=== PATIENT | female | born 1940 | race Caucasian/White ===

== ENCOUNTER 2019-12-15 03:43 | Inpatient (IN) ==
[2019-12-15] MEDS ORDERED: ONDANSETRON HCL/PF 2 MG/ML VIAL ONE (03:45)
[2019-12-15] MEDS ORDERED: ONDANSETRON HCL/PF 2 MG/ML VIAL IV ONE (03:59)
--- NOTE | 2019-12-15 04:04 | ERNOTE ---
Trauma/Assault HPI - General Stated Complaint: hip/ leg pain Time Seen by Provider: 12/15/19 03:45 Source: patient, EMS, other - [facility] notes Exam Limitations: no limitations - Immun/Allergies/Home Medications Allergies/Adverse Reactions: Allergies No Known Allergies Allergy (Verified 12/15/19 03:52) Home Medications: HOME MEDICATIONS acetaminophen 500 mg tablet 500 mg PO Q6H PRN 04/29/18 [Last Taken Unknown] albuterol sulfate 90 mcg/actuation aerosol inhaler 2 inh IH Q4H PRN #8 g 03/10/19 [Last Taken Unknown] fluticasone propionate 115 mcg-salmeterol 21 mcg/actuation HFA inhaler 2 puff IH BID #8 g 07/26/19 [Last Taken Unknown] amlodipine 10 mg tablet 10 mg PO DAILY #60 tab 10/15/19 [Last Taken Unknown] hydrochlorothiazide 25 mg tablet 25 mg PO DAILY #60 tab 12/09/19 [Last Taken Unknown] Metoprolol Succinate 50 mg PO DAILY 12/15/19 [Last Taken Unknown] - History of Present Illness Narrative: Patient states she tripped over her own feet falling on her right side. She had right hip pain was unable to bear weight. She called her son who took her to [facility] ED. they diagnosed her with a greater trochanteric fracture of the right femur. Patient was accepted by Dr. Lugo in orthopedics. Patient was transferred here by [facility]. Patient received fentanyl in route by EMS and was somewhat nauseous upon arrival and given 4 mg Zofran IV. Pain Location: Reports: lower extremity Method of Injury: Reports: fall Severity: moderate Modifying Factors - (Improves): Reports: immobilization Modifying Factors - (Worsens): Reports: movement Loss of Consciousness: Reports: no loss of consciousness Associated Symptoms - Trauma: Reports: denies symptoms Review of Systems - Review of Systems Constitutional: Absent: recent illness, fever, chills EYE: Absent: vision changes ENT: Absent: nose congestion, nasal drainage Respiratory: Absent: shortness of breath, cough Cardiology: Absent: chest pain, palpitations Gastrointestinal/Abdominal: Present: See HPI, nausea. Absent: vomiting, diarrhea Genitourinary: Present: frequency - Due to diuretics. Absent: pain, dysuria Musculoskeletal: Present: See HPI, joint pain. Absent: back pain, neck pain Skin: Absent: rash, lesions Neurological: Absent: headache, dizziness/light-headedness Endocrine: Absent: excessive sweating, flushing Medical History (Last Reviewed 12/15/19 @ 04:02 by Vazquez Samano DO) IBS (irritable bowel syndrome) (Chronic) Onset Date: Unknown Osteoporosis (Chronic) Hypertension (Chronic) Hyperlipidemia (Chronic) Diverticulosis (Resolved) Onset Date: ~1979 B12 deficiency (Chronic) Asthma (Chronic) Surgical History: Surgical History (Last Reviewed 12/15/19 @ 04:02 by Vazquez Samano DO) History of cervical polypectomy Onset Date: Unknown History of cholecystectomy Onset Date: ~01/21/13 Dr. Germain History of colonoscopy Onset Date: ~12/23/06 Dr. Germain sigmoid diverticulosis History of dilatation and curettage Onset Date: ~1990 [facility] History of flexible sigmoidoscopy Onset Date: ~1989 [facility] History of laparoscopy Onset Date: ~02/14/13 Dr. Germain w/drainage of abscess and placement of drain Family History: Family History (Last Reviewed 12/15/19 @ 04:02 by Vazquez Samano DO) Sister Hypertension Father , age 71 Hypertension Depression Myocardial infarction Mother , age 71 Cancer colon ca mets to liver Social History: (Last Reviewed 12/15/19 @ 04:03 by Vazquez Samano DO) Social History: Marital status: household members: none number of children: 3 current occupational status: retired Highest education level completed: some college, no degree Service: No Tobacco: Smoking Status: Never smoker Alcohol: alcohol intake: current Substance Use: substance use type: does not use Dietary Habits: caffeine: Yes Type: coffee Physical Exam - Physical Exam General Appearance: Present: wd/wn, alert, no apparent distress Head Exam: Present: normal inspection, no evidence of injury Eye Exam: Normal inspection: bilateral Neck: Present: normal inspection, nontender, supple Respiratory: Present: no respiratory distress, normal breath sounds, chest nontender, lungs clear Cardiovascular/Chest: Present: regular rate, rhythm, no murmur Gastrointestinal/Abdominal: Present: normal bowel sounds, nontender, nondistended, soft Back Exam: Present: normal inspection Extremity Exam: Present: normal except - - Tenderness right lateral trochanter and right hip anteriorly., no edema. Absent: calf tenderness Neurological Exam: Present: alert, oriented, normal mood/affect, no motor/sensory deficits Lymphatic Exam: Present: no adenopathy Detailed Trauma Exam Best Eye Response (Bennett): (4) open spontaneously Best Verbal Response (Hilda): (5) oriented Best Motor Response (Bennett): (6) obeys commands Hilda Total: 15 - C-Spine cleared by: Neg history & exam - T, L-Spine cleared by: Neg hx and exam Progress - Results and Orders Patient's Lab Results:: I have reviewed the patient's lab results. - Vital Signs Patient's Vital Signs:: I have reviewed the patient's vital signs. Vital Signs: Vital Signs 12/15/19 03:44 Temperature 36.4 C Pulse Rate 75 Respiratory Rate 15 Blood Pressure 101/65 O2 Sat by Pulse Oximetry 99 - Progress/Reassessment Chief Complaint: Fall Progress Note-Subjective: 12/15/19 04:[address] Price he asked for the patient to be admitted to medicine and consult orthopedics he will decide whether the patient needs to go to surgery this morning. He has patient be kept n.p.o. in case she does go to surgery today. 12/15/19 04:[address] Hewitt he agrees to admit the patient and consult orthopedics. Departure Clinical Impression: Greater trochanter fracture Qualifiers: Encounter type: initial encounter Fracture type: closed Fracture alignment: nondisplaced Laterality: right Qualified Code(s): S72.114A - Nondisplaced fracture of greater trochanter of right femur, initial encounter for closed fracture - Departure Disposition: Still a patient Condition: Good Critical Care Time - Critical Care Critical Time Spent:: No
[2019-12-15 04:10] LABS: Hemoglobin 10.9 gm/dL (12.5-16.0); Mean Corpuscular Hemoglobin 29.6 pg (27-31); Mean Corpuscular Hgb Conc 34.1 g/dl (32-36); Mean Platelet Volume 7.7 fl (8-12.5); Neutrophil # 10.8 K/mm3 (1.3-6.0); Neutrophil % 87.7 % (42-75.0); Platelet Count 259 K/mm3 (150-450); Red Blood Count 3.68 M/mm3 (4.2-5.4); Red Cell Distribution Width 12.9 % (11.5-14.0); White Blood Count 12.3 K/mm3 (4.0-10.5)
[2019-12-15 04:23] LABS: Albumin * 3.7 gm/dl (3.4-5.0); Anion Gap 11.2 mmol/L (6.8-13.8); BUN/Creatinine Ratio 13.7 (9.0-21.6); Bilirubin, Total 0.4 mg/dL (0.0-1.1); Ca. Corrected For Albumin 8.9 mg/dL (8.4-10.2); Carbon Dioxide 27.5 mmol/L (24-32.6); Potassium 3.7 mmol/L (3.4-4.6); Total Protein 7.2 gm/dL (6.2-8.2)
[2019-12-15] MEDS ORDERED: NORMAL SALINE 1,000 ML IV ONE (04:25)
[2019-12-15 04:50] LABS: Urine Appearance Clear (CLEAR); Urine Bacteria TRACE; Urine Bilirubin Negative (NEGATIVE); Urine Blood Negative /ul (NEGATIVE); Urine Color Pale Yellow; Urine Ketone Negative (NEGATIVE); Urine Nitrite Negative (NEGATIVE); Urine Protein Negative (NEGATIVE); Urine RBC None Seen /hpf (0-5); Urine Urobilinogen Normal (NORMAL); Urine WBC None Seen /hpf (0-5); Urine pH 6.5 pH (5.0-7.0)
--- NOTE | 2019-12-15 07:42 | HP ---
Chief Complaint - Chief Complaint Date of Service: 12/15/19 Time of Service: 07:42 Chief Complaint: Right hip fracture History of Present Illness: Patient with past medical history of hypertension, irritable bowel syndrome, hyperlipidemia, asthma suffered a ground-level fall in her kitchen yesterday, sustaining a right trochanteric hip fracture. She is not sure why she fell, but feels like she may have tripped on her shoes. She landed on her right hip. She was brought to the [place] ER, and subsequently transferred here. Currently, she feels like she only has pain when she tries to move her right hip. Denies chest pain, shortness of breath, dysuria, skin ulcers. Medical History (Last Reviewed 12/15/19 @ 04:02 by Vazquez Samano DO) IBS (irritable bowel syndrome) (Chronic) Onset Date: Unknown Osteoporosis (Chronic) Hypertension (Chronic) Hyperlipidemia (Chronic) Diverticulosis (Resolved) Onset Date: ~1979 B12 deficiency (Chronic) Asthma (Chronic) Surgical History: Surgical History (Last Reviewed 12/15/19 @ 04:02 by Vazquez Samano DO) History of cervical polypectomy Onset Date: Unknown History of cholecystectomy Onset Date: ~01/21/13 Dr. Germain History of colonoscopy Onset Date: ~12/23/06 Dr. Germain sigmoid diverticulosis History of dilatation and curettage Onset Date: ~1990 [facility] History of flexible sigmoidoscopy Onset Date: ~1989 [facility] History of laparoscopy Onset Date: ~02/14/13 Dr. Germain w/drainage of abscess and placement of drain Family History: Family History (Last Reviewed 12/15/19 @ 04:02 by Vazquez Samano DO) Sister Hypertension Father , age 71 Hypertension Depression Myocardial infarction Mother , age 71 Cancer colon ca mets to liver Social History: (Last Reviewed 12/15/19 @ 04:03 by Vazquez Samano DO) Social History: Marital status: household members: none number of children: 3 current occupational status: retired Highest education level completed: some college, no degree Service: No Tobacco: Smoking Status: Never smoker Alcohol: alcohol intake: current Substance Use: substance use type: does not use Dietary Habits: caffeine: Yes Type: coffee Review Of Systems (GEN) - Review of Systems Generalized/Overall Review: Absent: Fever Respiratory: Absent: Cough, Shortness of Breath Cardiac: Absent: Chest Pain, Edema Abdominal: Present: Other - Has chronic intermittent diarrhea, most recently 2 days prior. Absent: Nausea, Vomiting, Constipation Genitourinary: Absent: Urgency, Dysuria Musculoskeletal: Present: Joint Pain - Right hip Neurological: Absent: Headache Skin: Absent: Lesions Allergies/Adverse Reactions: Allergies Allergy/AdvReac Type Severity Reaction Status Date / Time No Known Allergies Allergy Verified 12/15/19 03:52 Home Medications: HOME MEDICATIONS acetaminophen 500 mg tablet 500 mg PO Q6H PRN 04/29/18 [Last Taken Unknown] albuterol sulfate 90 mcg/actuation aerosol inhaler 2 inh IH Q4H PRN #8 g 03/10/19 [Last Taken Unknown] fluticasone propionate 115 mcg-salmeterol 21 mcg/actuation HFA inhaler 2 puff IH BID #8 g 07/26/19 [Last Taken Unknown] amlodipine 10 mg tablet 10 mg PO DAILY #60 tab 10/15/19 [Last Taken Unknown] hydrochlorothiazide 25 mg tablet 25 mg PO DAILY #60 tab 12/09/19 [Last Taken Unknown] Metoprolol Succinate 50 mg PO DAILY 12/15/19 [Last Taken Unknown] Exam - Exam Vital Signs: Vital Signs - Last Taken Temp 36.4 C 12/15/19 03:44 Pulse 65 12/15/19 05:00 Resp 16 12/15/19 05:00 BP 144/49 12/15/19 05:00 Pulse Ox 98 12/15/19 05:00 Constitutional: Present: Alert, Cooperative, No distress - Facial grimacing when trying to move the right hip, Elderly Respiratory: Present: normal breath sounds, no respiratory distress Cardiovascular/Chest: Present: regular rate, rhythm Abdomen: Present: Normal bowel sounds, soft, nontender Extremity: Absent: lower extremity edema Neurologic: Present: no motor/sensory deficits, normal mood/affect Eye contact: Present: cooperative, good eye contact Diagnostic Studies: Abnormal Lab Results 12/15/19 12/15/19 Range/Units 04:05 04:05 WBC 12.3 H (4.0-10.5) K/mm3 RBC 3.68 L (4.2-5.4) M/mm3 Hgb 10.9 L (12.5-16.0) gm/dL Hct 32.0 L (37.0-47.0) % MPV 7.7 L (8-12.5) fl Immature Gran % (Auto) 0.60 H (0.001-0.429) % Immature Gran # (Auto) 0.07 H (0.000-0.0310) K/mm3 Neutrophils % 87.7 H (42-75.0) % Lymphocytes % 7.2 L (20-51) % Neutrophils # 10.8 H (1.3-6.0) K/mm3 Lymphocytes # 0.88 L (1.5-3.5) k/mm3 Sodium 125 L (132-142) mmol/L Plasma Sodium 126 L (130-142) mmol/L Chloride 90 L (97-106) mmol/L Random Glucose 139 H (70-110) mg/dL Laboratory Results WBC 12.3 K/mm3 (4.0-10.5) H 12/15/19 04:05 RBC 3.68 M/mm3 (4.2-5.4) L 12/15/19 04:05 Hgb 10.9 gm/dL (12.5-16.0) L 12/15/19 04:05 Hct 32.0 % (37.0-47.0) L 12/15/19 04:05 MCV 87.0 fl (78-100) 12/15/19 04:05 MCH 29.6 pg (27-31) 12/15/19 04:05 MCHC 34.1 g/dl (32-36) 12/15/19 04:05 RDW 12.9 % (11.5-14.0) 12/15/19 04:05 Plt Count 259 K/mm3 (150-450) 12/15/19 04:05 MPV 7.7 fl (8-12.5) L 12/15/19 04:05 Immature Gran % (Auto) 0.60 % (0.001-0.429) H 12/15/19 04:05 Immature Gran # (Auto) 0.07 K/mm3 (0.000-0.0310) H 12/15/19 04:05 Neutrophils % 87.7 % (42-75.0) H 12/15/19 04:05 Lymphocytes % 7.2 % (20-51) L 12/15/19 04:05 Monocytes % 4.1 % (0.0-9) 12/15/19 04:05 Eosinophils % 0.2 % (0.0-3.0) 12/15/19 04:05 Basophils % 0.2 % (0.0-1.0) 12/15/19 04:05 Nucleated RBC % 0.0 k/mm3 (0-1) 12/15/19 04:05 Neutrophils # 10.8 K/mm3 (1.3-6.0) H 12/15/19 04:05 Lymphocytes # 0.88 k/mm3 (1.5-3.5) L 12/15/19 04:05 Monocytes # 0.5 k/mm3 (0.0-1.0) 12/15/19 04:05 Eosinophils # 0.0 k/mm3 (0.0-0.7) 12/15/19 04:05 Absolute Basophils 0.0 k/mm3 (0.0-0.1) 12/15/19 04:05 Sodium 125 mmol/L (132-142) L 12/15/19 04:05 Plasma Sodium 126 mmol/L (130-142) L 12/15/19 04:05 Potassium 3.7 mmol/L (3.4-4.6) D 12/15/19 04:05 Chloride 90 mmol/L (97-106) L 12/15/19 04:05 Carbon Dioxide 27.5 mmol/L (24-32.6) 12/15/19 04:05 Anion Gap 11.2 mmol/L (6.8-13.8) 12/15/19 04:05 BUN 13 mg/dL (3-23) 12/15/19 04:05 Creatinine 0.95 mg/dL (0.4-1.4) 12/15/19 04:05 Est GFR (Non-Af Amer) 60 mL/min (60-130) 12/15/19 04:05 BUN/Creatinine Ratio 13.7 (9.0-21.6) 12/15/19 04:05 Random Glucose 139 mg/dL (70-110) H 12/15/19 04:05 Calcium 9.0 mg/dL (7.9-10.9) 12/15/19 04:05 Calcium Adj for Albumin 8.9 mg/dL (8.4-10.2) 12/15/19 04:05 Total Bilirubin 0.4 mg/dL (0.0-1.1) 12/15/19 04:05 AST 21 U/L (0-48) 12/15/19 04:05 ALT 20 U/L (19-67) 12/15/19 04:05 Alkaline Phosphatase 71 U/L (50-170) 12/15/19 04:05 Total Protein 7.2 gm/dL (6.2-8.2) 12/15/19 04:05 Albumin 3.7 gm/dl (3.4-5.0) 12/15/19 04:05 Urine Color Pale yellow 12/15/19 04:41 Urine Appearance Clear (CLEAR) 12/15/19 04:41 Urine pH 6.5 pH (5.0-7.0) 12/15/19 04:41 Ur Specific [place] 1.010 SP.GR. (1.005-1.010) 12/15/19 04:41 Urine Protein Negative mg/dL (NEGATIVE) 12/15/19 04:41 Urine Glucose (UA) Negative mg/dL (NEGATIVE) 12/15/19 04:41 Urine Ketones Negative mg/dL (NEGATIVE) 12/15/19 04:41 Urine Blood Negative /ul (NEGATIVE) 12/15/19 04:41 Urine Nitrate Negative (NEGATIVE) 12/15/19 04:41 Urine Bilirubin Negative mg/dl (NEGATIVE) 12/15/19 04:41 Urine Urobilinogen Normal EU/dl (NORMAL) 12/15/19 04:41 Ur Leukocyte Esterase Negative /ul (NEGATIVE) 12/15/19 04:41 Urine RBC None seen /hpf (0-5) 12/15/19 04:41 Urine WBC None seen /hpf (0-5) 12/15/19 04:41 Ur Epithelial Cells None seen /hpf (0-5) 12/15/19 04:41 Urine Bacteria Trace (NONE) 12/15/19 04:41 Urine Culture Comments No culture indicated 12/15/19 04:41 Assessment/Plan - Assessment/Plan (1) Greater trochanter fracture Assessment: She was evaluated by Ortho, and no surgery needed. Will order PT and OT, and pain control with IV morphine, Allen, Tylenol as needed. Her PT evaluation will help determine the duration of her hospital stay. With her hyponatremia, anticipate at least 2 midnight stay. She lives alone. If she is unable to maneuver following physical therapy guidance, may need a stay in a rehab facility prior to returning home. Problem: Acute Qualifiers: Encounter type: initial encounter Fracture type: closed Fracture alignment: nondisplaced Laterality: right Qualified Code(s): S72.114A - Nondisplaced fracture of greater trochanter of right femur, initial encounter for closed fracture (2) Hyponatremia Assessment: Sodium was 125 this morning. Glucose not elevated. Likely secondary to her hydrochlorothiazide, but this has not been present in the past. She is given 1 L of fluid here in the ED. Will recheck CMP in the morning. Problem: Acute (3) Hypertension Assessment: She has not yet taken her blood pressure medications this morning. She did receive some fentanyl in the ambulance. Her blood pressure was actually a bit low on admission here, and is gradually increasing. We will continue home amlodipine, metoprolol. Will hold her HCTZ due to her hyponatremia, and add additional agent if needed, likely an CHAKA/ARB. Problem: Chronic (4) Hyperlipidemia Problem: Chronic (5) Asthma Assessment: Continue home Advair and as needed albuterol inhaler. She reports no difficulty breathing currently. Is oxygenating on room air. Problem: Chronic (6) IBS (irritable bowel syndrome) Assessment: Not currently having a flare. Problem: Chronic
[2019-12-15] MEDS ORDERED: MORPHINE SULFATE 2 MG/ML DISP.SYRIN IV PRN (07:56)
[2019-12-15] MEDS ORDERED: ACETAMINOPHEN 500 MG TABLET PO PRN (09:10)
[2019-12-15] MEDS ORDERED: ALBUTEROL SULFATE 2.5 MG/0.5 ML VIAL.NEB IH PRN (09:10)
[2019-12-15] MEDS: ALBUTEROL SULFATE 2.5 MG/0.5 ML VIAL.NEB IH SCH ×2 (10:38→18:10)
[2019-12-15] MEDS: BUDESONIDE 0.25 MG/2 ML VIAL.NEB IH SCH ×2 (10:39→18:11)
[2019-12-15] MEDS: ENOXAPARIN SODIUM 40 MG/0.4 ML SYRG SC SCH (12:35)
[2019-12-15] MEDS: ACETAMINOPHEN 500 MG TABLET PO PRN (15:04)
--- NOTE | 2019-12-15 15:55 | CONS ---
[facility] - General Date of Service: 12/15/19 Narrative: 79-year-old female was brought to our ER from [facility]. Patient notes she fell in her kitchen earlier this morning had significant right hip pain. Patient notes her pain is worse movement better with rest. She notes that she significant impairment in her ability to ambulate status post fall. She notes her pain is mostly located in her right hip without significant radiating symptoms. She notes she has not taken any other medications to alleviate and improve her symptoms. Denies any other acute trauma, head injury, significant acute symptoms diffusely. Source: patient - History of Present Illness Allergies/Adverse Reactions: Allergies No Known Allergies Allergy (Verified 12/15/19 14:49) Home Medications: Home Medications Medication Instructions Recorded Last Taken acetaminophen 500 mg tablet 1,000 mg PO Q8H PRN 04/29/18 Unknown albuterol sulfate 90 mcg/actuation 2 inh IH Q4H PRN #8 g 03/10/19 Unknown aerosol inhaler fluticasone propionate 115 2 puff IH BID #8 g 07/26/19 Unknown mcg-salmeterol 21 mcg/actuation HFA inhaler amlodipine 10 mg tablet 10 mg PO DAILY #60 tab 10/15/19 Unknown hydrochlorothiazide 25 mg tablet 25 mg PO DAILY #60 tab 12/09/19 Unknown Metoprolol Succinate 50 mg PO DAILY 12/15/19 Unknown Procedures Colonoscopy (12/23/06) Laparoscopic cholecystectomy (01/31/13) Percutaneous abdominal drainage (02/12/13) Venous catheterization, not elsewhere classified (02/12/13) Medications - Medications Current Medications: Current Medications Acetaminophen (Tylenol) 1,000 mg PO Q8H PRN PRN Reason: Pain Stop: 01/14/20 09:11 Last Admin: 12/15/19 15:04 Dose: 1,000 mg Documented by: Albuterol Sulfate (Albuterol Sulfate 2.5 Mg/0.5ml) 2.5 mg IH BIDRT [facility] Stop: 01/14/20 09:31 Last Admin: 12/15/19 10:38 Dose: 2.5 mg Documented by: Budesonide (Pulmicort Respules) 0.25 mg IH BIDRT [facility] Stop: 01/14/20 09:31 Last Admin: 12/15/19 10:39 Dose: 0.25 mg Documented by: Enoxaparin Sodium (Lovenox) 40 mg SC Q24H JUANITO Stop: 01/14/20 08:31 Last Admin: 12/15/19 12:35 Dose: 40 mg Documented by: Physical Examination - Exam Vital Signs: Vital Signs - Last Taken Temp 36.5 C 12/15/19 15:22 Pulse 95 12/15/19 15:22 Resp 20 12/15/19 15:22 BP 141/47 12/15/19 15:22 Pulse Ox 97 12/15/19 15:22 O2 Oxygen Delivery Method Room Air Constitutional: Present: Alert, Cooperative, No distress Respiratory: Present: no respiratory distress Extremity: Present: other - RLE--> sensation intact light touch, distal capillary refill brisk, diffuse tenderness about right hip, no obvious wounds or deformity, no significant pain about the knee, 0 to 60 degrees forward flexion actively Skin Exam: Present: normal color, warm/dry Appearance: Present: appropriate appearance Eye contact: Present: cooperative, good eye contact Thoughts: Present: normal thought pattern - Results and Findings: Lab/Microbiology results last 24 hrs: Abnormal/Pending Laboratory Last 24 HRS 12/15/19 12/15/19 04:05 04:05 WBC 12.3 H RBC 3.68 L Hgb 10.9 L Hct 32.0 L MPV 7.7 L Immature Gran % (Auto) 0.60 H Immature Gran # (Auto) 0.07 H Neutrophils % 87.7 H Lymphocytes % 7.2 L Neutrophils # 10.8 H Lymphocytes # 0.88 L Sodium 125 L Plasma Sodium 126 L Chloride 90 L Random Glucose 139 H - Assessments/Findings (1) Greater trochanter fracture Problem: Acute Qualifiers: Encounter type: initial encounter Fracture type: closed Fracture alignment: nondisplaced Laterality: right Qualified Code(s): S72.114A - Nondisplaced fracture of greater trochanter of right femur, initial encounter for closed fracture Plan - Plan Plan: -79-year-old female admitted with a right greater trochanteric fracture. Orthopedics was consulted after patient was brought to ER with a hip fracture. Dr. Price ordered a CT to better evaluate the femoral neck for possible fracture or underlying pathology. CT revealed a nondisplaced greater trochanter fracture. On the CT results would recommend nonoperative treatment. Patient can be 0 to 25% toe-touch weightbearing with an assistive device like a walker. Would recommend due to patient's social situation transfer to a senior care facility for PT/OT. Patient is at a significantly increased risk of falling due to this fracture. Recommend pain control with p.o. pain medication. Patient can follow-up with orthopedic outpatient clinic at 2 post fall. Can call orthopedic outpatient clinic with any acute questions or concerns. Would recommend continued work with ambulation with PT/OT.
[2019-12-15] MEDS: FLUTICASONE PROPION/SALMETEROL 14 PUFF DISK.W.DEV IH SCH (20:46)
[2019-12-16] MEDS: ALBUTEROL SULFATE 2.5 MG/0.5 ML VIAL.NEB IH SCH ×2 (06:04→18:11)
[2019-12-16] MEDS: BUDESONIDE 0.25 MG/2 ML VIAL.NEB IH SCH ×2 (06:05→18:11)
[2019-12-16 07:28] LABS: Anion Gap 9.1 mmol/L (6.8-13.8); BUN/Creatinine Ratio 20.2 (9.0-21.6); Bilirubin, Total 0.5 mg/dL (0.0-1.1); Ca. Corrected For Albumin 9.2 mg/dL (8.4-10.2); Calcium * 8.7 mg/dL (7.9-10.9); Carbon Dioxide 27.8 mmol/L (24-32.6); Potassium 3.9 mmol/L (3.4-4.6); Total Protein 6.3 gm/dL (6.2-8.2)
[2019-12-16] MEDS: HYDROcodone/ACETAMINOPHEN 1 EACH TABLET PO PRN ×2 (08:13→14:28)
[2019-12-16] MEDS: ENOXAPARIN SODIUM 40 MG/0.4 ML SYRG SC SCH (08:17)
[2019-12-16] MEDS ORDERED: METOPROLOL SUCCINATE 50 MG TABLET.SA PO SCH (09:00)
[2019-12-16] MEDS ORDERED: HYDROCHLOROTHIAZIDE 25 MG TABLET PO SCH (09:00)
--- NOTE | 2019-12-16 09:09 | PN ---
Subjective - Date and Time Seen Date: 12/16/19 Time: 09:09 Subjective Narrative: Patient has been trying to use her walker with ambulation. She started using the [facility] this morning and attempt to get some better pain control. No new concerns. Objective - Review of Systems Generalized/Overall Review: Denies: Fever Respiratory: Denies: Shortness of Breath Cardiac: Denies: Chest Pain Abdominal: Denies: Vomiting Genitourinary Symptoms: Reports: No Symptoms Reported Musculoskeletal Complaints: Reports: Joint Pain - right hip - Vitals Vitals: Last Vital Signs Temp 37.4 C 12/16/19 06:44 Pulse 88 12/16/19 06:44 Resp 12 12/16/19 06:44 BP 107/60 12/16/19 06:44 Pulse Ox 97 12/16/19 06:44 - Abnormal Lab Findings Abnormal Lab Findings: Abnormal Lab Results 12/16/19 Range/Units 06:50 Sodium 129 L (132-142) mmol/L Plasma Sodium 129 L (130-142) mmol/L Chloride 96 L (97-106) mmol/L Est GFR (Non-Af Amer) 54 L (60-130) mL/min ALT 16 L (19-67) U/L Albumin 3.0 L (3.4-5.0) gm/dl - Exam Constitutional: Present: Alert, Cooperative, No distress, Elderly Respiratory: Present: normal breath sounds, no respiratory distress Cardiovascular/Chest: Present: regular rate, rhythm Abdomen: Present: soft Extremity: Absent: lower extremity edema Eye contact: Present: cooperative, good eye contact Assessment/Plan - Problems/Diagnosis (1) Greater trochanter fracture Problem: Acute Qualifiers: Encounter type: initial encounter Fracture type: closed Fracture alignment: nondisplaced Laterality: right Qualified Code(s): S72.114A - Nondisplaced fracture of greater trochanter of right femur, initial encounter for closed fracture Narrative: She sustained a right greater trochanter fracture after a ground-level fall at home. She is working with PT. She prefer not to have to go to a halfway before going home. Continue pain control with [facility] [place]. If she is able to ambulate sufficiently with a walker to the bathroom, she can DC home. Anticipate discharge in 24 to 48 hours. If she does require halfway placement on discharge, will need to be here through [facility], as it is a holiday weekend. Will order home health on discharge. (2) Hypertension Problem: Chronic Narrative: Her blood pressure medicine has been held and her blood pressure is actually been a bit low. Will not continue hydrochlorothiazide as it may be contributing to her hyponatremia. Can add back antihypertensives as needed, for sustained blood pressure greater than 140/90. (3) Hyponatremia Problem: Acute Narrative: She has been getting fluids, and will recheck CMP in the morning. Sodium has improved from 125 to 129. HCTZ is possible source, and has been held. (4) Hyperlipidemia Problem: Chronic (5) Asthma Problem: Chronic Narrative: No current respiratory complaints and she is oxygenating well on room air. (6) IBS (irritable bowel syndrome) Problem: Chronic
[2019-12-16] MEDS: FLUTICASONE PROPION/SALMETEROL 14 PUFF DISK.W.DEV IH SCH ×2 (10:14→20:39)
[2019-12-17] MEDS: ALBUTEROL SULFATE 2.5 MG/0.5 ML VIAL.NEB IH SCH (06:14)
[2019-12-17] MEDS: BUDESONIDE 0.25 MG/2 ML VIAL.NEB IH SCH ×2 (06:14→07:15)
[2019-12-17 06:51] LABS: Anion Gap 9.1 mmol/L (6.8-13.8); BUN/Creatinine Ratio 19.8 (9.0-21.6); Bilirubin, Total 0.5 mg/dL (0.0-1.1); Ca. Corrected For Albumin 9.3 mg/dL (8.4-10.2); Calcium * 8.8 mg/dL (7.9-10.9); Carbon Dioxide 28.7 mmol/L (24-32.6); Potassium 3.8 mmol/L (3.4-4.6); Total Protein 6.4 gm/dL (6.2-8.2)
[2019-12-17] MEDS: ACETAMINOPHEN 500 MG TABLET PO PRN ×2 (07:35→13:23)
[2019-12-17] MEDS ORDERED: POLYVINYL ALCOHOL 150 DROP BTL EACHEYE PRN (08:32)
[2019-12-17] MEDS: ENOXAPARIN SODIUM 40 MG/0.4 ML SYRG SC SCH (09:38)
[2019-12-17] MEDS: FLUTICASONE PROPION/SALMETEROL 14 PUFF DISK.W.DEV IH SCH ×2 (09:38→20:17)
[2019-12-17] MEDS: SODIUM CHLORIDE 1 GM TABLET PO SCH (09:38)
--- NOTE | 2019-12-17 12:04 | PN ---
Subjective - Date and Time Seen Date: 12/17/19 Time: 11:59 Subjective Narrative: She still has significant pain with transfer, particularly in the morning. She feels like the norco gives her some nausea, so she's planning on trying just tylenol for pain today. She has some increased gas, and hasn't had a BM in 3 days, and would like to try some miralax. Objective - Review of Systems Generalized/Overall Review: Denies: Fever Respiratory: Denies: Shortness of Breath, Wheezing Cardiac: Denies: Chest Pain, Edema Abdominal: Reports: Constipation, Other - gas. Denies: Abdominal Pain Genitourinary Symptoms: Reports: No Symptoms Reported Musculoskeletal Complaints: Reports: Joint Pain - lateral right hip Neurological: Reports: No Symptoms Reported - Vitals Vitals: Last Vital Signs Temp 36.9 C 12/17/19 10:45 Pulse 77 12/17/19 11:37 Resp 16 12/17/19 10:45 BP 90/44 12/17/19 11:37 Pulse Ox 99 12/17/19 11:37 - Abnormal Lab Findings Abnormal Lab Findings: Abnormal Lab Results 12/17/19 Range/Units 06:35 Sodium 128 L (132-142) mmol/L Plasma Sodium 128 L (130-142) mmol/L Chloride 94 L (97-106) mmol/L Est GFR (Non-Af Amer) 56 L (60-130) mL/min Random Glucose 116 H (70-110) mg/dL ALT 15 L (19-67) U/L Alkaline Phosphatase 49 L (50-170) U/L Albumin 3.0 L (3.4-5.0) gm/dl - Exam Constitutional: Present: Alert, Oriented x3, Cooperative, No distress, Elderly Respiratory: Present: lungs clear, normal breath sounds Cardiovascular/Chest: Present: regular rate, rhythm Abdomen: Present: soft, nontender Extremity: Absent: lower extremity edema Appearance: Present: appropriate insight Eye contact: Present: cooperative, good eye contact Assessment/Plan - Problems/Diagnosis (1) Greater trochanter fracture Problem: Acute Qualifiers: Encounter type: initial encounter Fracture type: closed Fracture alignment: nondisplaced Laterality: right Qualified Code(s): S72.114A - Nondisplaced fracture of greater trochanter of right femur, initial encounter for closed fracture Narrative: Ortho was consulted, and her fracture can be managed medically, and does not require surgical intervention. She has been working with physical therapy, and is able to transfer with assistance, but has significant pain, particularly in the morning. She is using norco for pain control currently, but doesn't like how it makes her feel, and doesn't feel like it's very helpful. She'd like to try tylenol for pain control today. She declines rehab placement after DC. A son is able to stay with her for 2 weeks, as long as she has home health. This was discussed with case t, and her son is unable to be here to stay with her until Friday, 3 days from now. She is unable to DC before then, as she is a significant fall risk with her trochanter hip fracture. (2) Hypertension Problem: Chronic Narrative: She's had several low BP readings since she's been here, so her home antihypertensives have been held. Can restart for sustained BP greater than 140/90. Will stop the HCTZ, as she is hyponatremic. (3) Hyponatremia Problem: Acute Narrative: Sodium is 128 today, and was 129 yesterday. Likely due to home HCTZ, which has been held. Will add NaCl while she is here, and recheck in am. (4) Hyperlipidemia Problem: Chronic (5) Asthma Problem: Chronic Narrative: She is oxygenating well on room air. (6) IBS (irritable bowel syndrome) Problem: Chronic
[2019-12-17] MEDS: POLYETHYLENE GLYCOL 3350 17 GM PACKET PO PRN (20:17)
[2019-12-17] MEDS: HYDROcodone/ACETAMINOPHEN 1 EACH TABLET PO PRN (20:18)
[2019-12-18] MEDS: ACETAMINOPHEN 500 MG TABLET PO PRN ×3 (06:49→21:36)
[2019-12-18 07:08] LABS: Albumin * 3.5 gm/dl (3.4-5.0); Anion Gap 9.7 mmol/L (6.8-13.8); BUN/Creatinine Ratio 16.5 (9.0-21.6); Bilirubin, Total 0.4 mg/dL (0.0-1.1); Ca. Corrected For Albumin 9.4 mg/dL (8.4-10.2); Calcium * 9.3 mg/dL (7.9-10.9); Carbon Dioxide 29.4 mmol/L (24-32.6); Potassium 4.1 mmol/L (3.4-4.6); Total Protein 7.4 gm/dL (6.2-8.2)
[2019-12-18] MEDS: ENOXAPARIN SODIUM 40 MG/0.4 ML SYRG SC SCH (08:42)
[2019-12-18] MEDS: FLUTICASONE PROPION/SALMETEROL 14 PUFF DISK.W.DEV IH SCH ×2 (08:43→21:35)
[2019-12-18] MEDS: SODIUM CHLORIDE 1 GM TABLET PO SCH (08:44)
[2019-12-18] MEDS: amLODIPine BESYLATE 10 MG TABLET PO SCH (08:46)
[2019-12-18] MEDS: POLYETHYLENE GLYCOL 3350 17 GM PACKET PO PRN (08:47)
--- NOTE | 2019-12-18 09:36 | PN ---
Subjective - Date and Time Seen Date: 12/18/19 Time: 09:10 Subjective Narrative: She and her nurse feel like she's doing well. Is able to transfer using the walker, but is still very apprehensive about falling. Her BP has been increasing. Has not yet had a BM. Objective - Review of Systems Generalized/Overall Review: Denies: Fever Respiratory: Reports: Cough - this morning. Denies: Shortness of Breath Cardiac: Denies: Chest Pain Abdominal: Reports: Constipation. Denies: Nausea, Abdominal Pain Genitourinary Symptoms: Reports: No Symptoms Reported Musculoskeletal Complaints: Reports: Joint Pain - lateral right hip Neurological: Reports: No Symptoms Reported - Vitals Vitals: Last Vital Signs Temp 37.3 C 12/18/19 06:21 Pulse 76 12/18/19 08:46 Resp 16 12/18/19 06:21 BP 161/54 H 12/18/19 08:46 Pulse Ox 99 12/18/19 06:21 - Abnormal Lab Findings Abnormal Lab Findings: Abnormal Lab Results 12/18/19 Range/Units 06:37 Sodium 131 L (132-142) mmol/L Chloride 96 L (97-106) mmol/L Est GFR (Non-Af Amer) 59 L (60-130) mL/min ALT 17 L (19-67) U/L - Exam Constitutional: Present: Alert, Cooperative, Well developed, Well nourished, Elderly Respiratory: Present: normal breath sounds Cardiovascular/Chest: Present: regular rate, rhythm Abdomen: Present: soft. Absent: tender Extremity: Absent: lower extremity edema Neurologic: Present: normal mood/affect Assessment/Plan - Problems/Diagnosis (1) Greater trochanter fracture Problem: Acute Qualifiers: Encounter type: initial encounter Fracture type: closed Fracture alignment: nondisplaced Laterality: right Qualified Code(s): S72.114A - Nondisplaced fracture of greater trochanter of right femur, initial encounter for closed fracture Narrative: Ortho was consulted, and her fracture can be managed medically, and does not require surgical intervention. She has been working with physical therapy, and is able to transfer with assistance, but has significant pain, particularly in the morning. She tried using just tylenol for pain yesterday, because she didn't like how the norco made her feel. She doesn't feel like it was particularly helpful, but wants to keep trying it. She declines rehab placement after DC. A son is able to stay with her for 2 weeks, as long as she has home health. This was discussed with case mgt, and her son is unable to be here to stay with her until Friday, 2 days from now. She is unable to DC before then, as she is a significant fall risk with her trochanter hip fracture. Continue PT while admitted. (2) Hypertension Problem: Chronic Narrative: She had several low BP readings since admission, so her home antihypertensives were been held. This morning's BPs are 161/44, so will restart home amlodipine. Will stop the HCTZ, as she is hyponatremic. Will also restart metoprolol for sustained BP greater than 140/90. (3) Hyponatremia Problem: Acute Narrative: Improving. Suspect the source is her HCTZ, which has been DC'd. NaCl added yesterday, and sodium level was 131 this morning. (4) Hyperlipidemia Problem: Chronic (5) Asthma Problem: Chronic Narrative: She is oxygenating well on room air. Continue home meds with formulary substitutions. (6) IBS (irritable bowel syndrome) Problem: Chronic
[2019-12-19] MEDS: POLYETHYLENE GLYCOL 3350 17 GM PACKET PO PRN (09:10)
[2019-12-19] MEDS: amLODIPine BESYLATE 10 MG TABLET PO SCH (09:10)
[2019-12-19] MEDS: SODIUM CHLORIDE 1 GM TABLET PO SCH (09:10)
[2019-12-19] MEDS: ENOXAPARIN SODIUM 40 MG/0.4 ML SYRG SC SCH (09:10)
[2019-12-19] MEDS: FLUTICASONE PROPION/SALMETEROL 14 PUFF DISK.W.DEV IH SCH ×2 (09:10→21:18)
[2019-12-19] MEDS ORDERED: SENNOSIDES 8.6 MG TABLET PO PRN (09:31)
--- NOTE | 2019-12-19 09:34 | PN ---
Subjective - Date and Time Seen Date: 12/19/19 Time: 09:16 Subjective Narrative: Henrietta has no new concerns. Still has not had a bowel movement, but doesn't have abdominal discomfort. Objective - Review of Systems Generalized/Overall Review: Denies: Fever Respiratory: Reports: Cough - coughing spell overnight. Denies: Shortness of Breath Cardiac: Denies: Chest Pain, Edema Abdominal: Reports: Constipation. Denies: Nausea, Vomiting, Abdominal Pain Genitourinary Symptoms: Reports: No Symptoms Reported Musculoskeletal Complaints: Reports: Joint Pain - right hip - Vitals Vitals: Last Vital Signs Temp 37.2 C 12/19/19 06:13 Pulse 72 12/19/19 09:10 Resp 16 12/19/19 06:13 BP 141/61 12/19/19 09:10 Pulse Ox 97 12/19/19 06:13 - Exam Constitutional: Present: Alert, Cooperative, No distress, Elderly Respiratory: Present: lungs clear, normal breath sounds Cardiovascular/Chest: Present: regular rate, rhythm Abdomen: Present: Normal bowel sounds, soft, nontender Extremity: Present: other - minimal bruising of right lateral hip. Absent: lower extremity edema Appearance: Present: appropriate appearance Eye contact: Present: cooperative, good eye contact Assessment/Plan - Problems/Diagnosis (1) Greater trochanter fracture Problem: Acute Qualifiers: Encounter type: initial encounter Fracture type: closed Fracture alignment: nondisplaced Laterality: right Qualified Code(s): S72.114A - Nondisplaced fracture of greater trochanter of right femur, initial encounter for closed fracture Narrative: Ortho was consulted, and her fracture can be managed medically, and does not require surgical intervention. She has been working with physical therapy, and is able to transfer with assistance. She reports significant pain, but has not used norco in two days. Pain control with tylenol currently. She declines rehab placement after DC. A son is able to stay with her for 2 weeks, as long as she has home health. This was discussed with case rai, and her son is unable to be here to stay with her until tomorrow. She is unable to DC before then, as she is a significant fall risk with her trochanter hip fracture. Likely DC tomorrow with home health and a walker. (2) Hypertension Problem: Chronic Narrative: BP has been 130's-140's/60's with amlodipine, and will continue this. Stop HCTZ for hyponatremia. Will add back her metoprolol for sustained BP greater than 140/80. (3) Hyponatremia Problem: Acute Narrative: Na+ of 125 on admission, and improved to 131 yesterday after stopping HCTZ and adding NaCl tablets. Recheck in am. (4) Hyperlipidemia Problem: Chronic (5) Asthma Problem: Chronic (6) IBS (irritable bowel syndrome) Problem: Chronic Qualifiers: Irritable bowel syndrome type: with constipation Qualified Code(s): K58.1 - Irritable bowel syndrome with constipation Narrative: She doesn't think she's had a BM in about 5 days. Normally, she goes 4 days between bowel movements. Miralax was added yesterday, and will add senna today.
[2019-12-19] MEDS: ACETAMINOPHEN 500 MG TABLET PO PRN ×2 (14:06→21:20)
[2019-12-20] MEDS: ACETAMINOPHEN 500 MG TABLET PO PRN (06:28)
[2019-12-20 06:50] LABS: Albumin * 3.1 gm/dl (3.4-5.0); Anion Gap 8.8 mmol/L (6.8-13.8); BUN/Creatinine Ratio 16.5 (9.0-21.6); Bilirubin, Total 0.4 mg/dL (0.0-1.1); Ca. Corrected For Albumin 9.3 mg/dL (8.4-10.2); Calcium * 8.9 mg/dL (7.9-10.9); Carbon Dioxide 29.5 mmol/L (24-32.6); Potassium 5.3 mmol/L (3.4-4.6); Total Protein 6.6 gm/dL (6.2-8.2)
[2019-12-20] MEDS: amLODIPine BESYLATE 10 MG TABLET PO SCH (08:08)
[2019-12-20] MEDS: SODIUM CHLORIDE 1 GM TABLET PO SCH (08:09)
[2019-12-20] MEDS: FLUTICASONE PROPION/SALMETEROL 14 PUFF DISK.W.DEV IH SCH (08:09)
[2019-12-20] MEDS: ENOXAPARIN SODIUM 40 MG/0.4 ML SYRG SC SCH (08:10)
--- NOTE | 2019-12-20 12:18 | DS ---
(1) Greater trochanter fracture Problem: Acute Qualifiers: Encounter type: initial encounter Fracture type: closed Fracture alignment: nondisplaced Laterality: right Qualified Code(s): S72.114A - Nondisplaced fracture of greater trochanter of right femur, initial encounter for closed fracture (2) Hypertension Problem: Chronic (3) Hyponatremia Problem: Resolved (4) Hyperlipidemia Problem: Chronic (5) Asthma Problem: Chronic (6) IBS (irritable bowel syndrome) Problem: Chronic Qualifiers: Irritable bowel syndrome type: with constipation Qualified Code(s): K58.1 - Irritable bowel syndrome with constipation Date of Discharge:: 12/20/19 Hospital Course: Patient admitted after ground level fall at home. ED workup showed a fracture of her right greater trochanter. Ortho was consulted, and medical management was recommend. She was able to work with physical therapy, and could transfer with a walker. She did not like how the Ethel made her feel, and pain was managed with Tylenol. She lives alone, and did not have support at home. She remained hospitalized for a few extra days over a holiday weekend, until a son could be with her. She declined rehab placement. She has opted for [facility] home health after discharge. She was hyponatremic on admission, with a sodium level of 125. This was felt to be secondary to hydrochlorothiazide, which was held. Her blood pressure is actually low for the first couple of days of admission. As her blood pressure increased, home amlodipine and eventually metoprolol restarted. Sodium was 131 on the day of discharge. Labs done on the day of discharge showed potassium level of 5.3. She was not hyperkalemic throughout the rest of her stay. Recommend repeating on hospital follow-up outpatient visit. Procedures Performed: none Results and Findings: Lab Pending Results 12/15/19 04:05: WBC 12.3 H, RBC 3.68 L, Hgb 10.9 L, Hct 32.0 L, MCV 87.0, MCH 29.6, MCHC 34.1, RDW 12.9, Plt Count 259, MPV 7.7 L, Immature Gran % (Auto) 0.60 H, Immature Gran # (Auto) 0.07 H, Neutrophils % 87.7 H, Lymphocytes % 7.2 L, Monocytes % 4.1, Eosinophils % 0.2, Basophils % 0.2, Nucleated RBC % 0.0, Neutrophils # 10.8 H, Lymphocytes # 0.88 L, Monocytes # 0.5, Eosinophils # 0.0, Absolute Basophils 0.0 12/15/19 04:05: Sodium 125 L, Plasma Sodium 126 L, Potassium 3.7 D, Chloride 90 L, Carbon Dioxide 27.5, Anion Gap 11.2, BUN 13, Creatinine 0.95, Est GFR (Non-Af Amer) 60, BUN/Creatinine Ratio 13.7, Random Glucose 139 H, Calcium 9.0, Calcium Adj for Albumin 8.9, Total Bilirubin 0.4, AST 21, ALT 20, Alkaline Phosphatase 71, Total Protein 7.2, Albumin 3.7 12/15/19 04:41: Urine Color Pale yellow, Urine Appearance Clear, Urine pH 6.5, Ur Specific [employer] 1.010, Urine Protein Negative, Urine Glucose (UA) Negative, Urine Ketones Negative, Urine Blood Negative, Urine Nitrate Negative, Urine Bilirubin Negative, Urine Urobilinogen Normal, Ur Leukocyte Esterase Negative, Urine RBC None seen, Urine WBC None seen, Ur Epithelial Cells None seen, Urine Bacteria Trace, Urine Culture Comments No culture indicated 12/16/19 06:50: Sodium 129 L, Plasma Sodium 129 L, Potassium 3.9, Chloride 96 L, Carbon Dioxide 27.8, Anion Gap 9.1, BUN 21 D, Creatinine 1.04, Est GFR (Non-Af Amer) 54 L, BUN/Creatinine Ratio 20.2, Random Glucose 92 D, Calcium 8.7, Calcium Adj for Albumin 9.2, Total Bilirubin 0.5, AST 16, ALT 16 L, Alkaline Phosphatase 52, Total Protein 6.3, Albumin 3.0 L 12/17/19 06:35: Sodium 128 L, Plasma Sodium 128 L, Potassium 3.8, Chloride 94 L, Carbon Dioxide 28.7, Anion Gap 9.1, BUN 20, Creatinine 1.01, Est GFR (Non-Af Amer) 56 L, BUN/Creatinine Ratio 19.8, Random Glucose 116 H, Calcium 8.8, Calcium Adj for Albumin 9.3, Total Bilirubin 0.5, AST 14, ALT 15 L, Alkaline Phosphatase 49 L, Total Protein 6.4, Albumin 3.0 L 12/18/19 06:37: Sodium 131 L, Plasma Sodium 131, Potassium 4.1, Chloride 96 L, Carbon Dioxide 29.4, Anion Gap 9.7, BUN 16, Creatinine 0.97, Est GFR (Non-Af Amer) 59 L, BUN/Creatinine Ratio 16.5, Random Glucose 93, Calcium 9.3, Calcium Adj for Albumin 9.4, Total Bilirubin 0.4, AST 16, ALT 17 L, Alkaline Phosphatase 58, Total Protein 7.4, Albumin 3.5 12/20/19 06:10: Sodium 132, Plasma Sodium 132, Potassium 5.3 H D, Chloride 99, Carbon Dioxide 29.5, Anion Gap 8.8, BUN 14, Creatinine 0.85, Est GFR (Non-Af Amer) 68, BUN/Creatinine Ratio 16.5, Random Glucose 93, Calcium 8.9, Calcium Adj for Albumin 9.3, Total Bilirubin 0.4, AST 23, ALT 26, Alkaline Phosphatase 60, Total Protein 6.6, Albumin 3.1 L Discharge Location: Home Disposition: Home Health Service Home Health Agency: [facility] Condition: Good Discharge Activity: Partial-Weight bearing Discharge Diet: General/regular food Referrals: Cesia Elliott DO [Primary Care Provider] - Two Weeks Additional Patient Instructions (free text): [facility] health new, please call and fax discharge information to them. 2 week follow up with Orthopedic office. Prescriptions (Any new or edited meds): Polyethylene Glycol 3350 [Miralax] 17 gm PO DAILY PRN #1 bottle PRN Reason: Constipation Transmission Status: Pending to [facility] #[id number] Sennosides [Senokot] 8.6 mg PO BID PRN #1 bottle PRN Reason: Constipation Transmission Status: Pending to [facility] #[id number] Complete Home Medications List: Complete Home Medication List: acetaminophen 500 mg tablet 1,000 mg PO Q8H PRN 04/29/18 albuterol sulfate 90 mcg/actuation aerosol inhaler 2 inh IH Q4H PRN #8 g 03/10/19 fluticasone propionate 115 mcg-salmeterol 21 mcg/actuation HFA inhaler 2 puff IH BID #8 g 07/26/19 amlodipine 10 mg tablet 10 mg PO DAILY #60 tab 10/15/19 Metoprolol Succinate 50 mg PO DAILY 12/15/19 Polyethylene Glycol 3350 [Miralax] 17 gm PO DAILY PRN #1 bottle 12/20/19 Sennosides [Senokot] 8.6 mg PO BID PRN #1 bottle 12/20/19 Forms: Patient Portal Registration
[2019-12-20 14:37] VITALS: BP 140/55
== END 2019-12-20 14:40 | disposition home health service (06) | DRG 536 ==
LOC: MS 03:43 → ER 03:43 → MS 05:20
PROVIDERS: ADMIT Family Medicine; ATTEND Family Medicine
CPT/HCPCS: 36415; 71010; 71045; 73700; 80053; 81001; 85025; 94640; 94664; 96361; 96374; 97110; 97116; 97161; 97165; 97535; 99285; J2405; U0001